=== PATIENT | male | born 1985 | race African-American/Black ===

== ENCOUNTER 2016-12-13 10:42 | Emergency (ER) | payer BC ==
[~2016-12-13] VITALS: Ht 170.2 cm; Wt 70.3 kg
--- NOTE | 2016-12-13 11:00 | NUR ---
PATIENT WAS SEEN BY DR BULLARD.
--- NOTE | 2016-12-13 11:20 | NUR ---
DC, RX AND FOLLOW UP INSTRUTIONS GIVEN AND EXPLAINED TO PATIENT WHO STATES HE UNDERSTANDS ALL INSTRUCTIONS.
== END 2016-12-13 11:21 | disposition home or self-care (01) ==
LOC: ER 10:42
DX: L73.9 Follicular disorder, unspecified (principal)
CPT/HCPCS: 99283; A4663

== ENCOUNTER 2017-12-02 00:30 | Emergency (ER) | payer BC ==
[~2017-12-02] VITALS: Ht 170.2 cm; Wt 72.6 kg
--- NOTE | 2017-12-02 01:35 | NUR ---
Patient left without being seen by ER physician.
== END 2017-12-02 01:39 | disposition left against medical advice (07) ==
LOC: ER 00:33
DX: Z53.21 Procedure and treatment not carried out due to patient leaving prior to being seen by health care provider (principal)
CPT/HCPCS: A4663